=== PATIENT | female | born 1960 | race Caucasian/White ===

== ENCOUNTER 2024-01-06 09:19 | Day surgery (SDC) | payer OTHER ==
[~2024-01-06] VITALS: Ht 154.9 cm; Wt 60.0 kg
[~2024-01-06 09:19] MED LIST: Balanced Salt Epinephrine Irrigation Solution 500 mL IR SCH; Lidocaine HCl/Pf 1% 5 ML VIAL XX SCH; Moxifloxacin HCL 0.5 MG/0.1 ML 0.4MLSYR LEFTEYE SCH; NS 500 ML IV ONE; PHENYLEPHRINE\\TROPICAMIDE\\TETRACAINE OPHTHALMIC DILATING SOLN LEFTEYE PRN; Povidone-Iodine 450 DROP/30 ML Solution LEFTEYE SCH; Povidone-Iodine 450 DROP/30 ML Solution ONE; Tetracaine HCl/Pf 0.5% Opth Soln 4 ml ONE
[2024-01-06] MEDS ORDERED: NS 500 ML IV ONE (09:47)
[2024-01-06] MEDS ORDERED: ATOR20 (09:49)
[2024-01-06] MEDS ORDERED: OLME20 PO (09:49)
[2024-01-06] MEDS ORDERED: GABA600 (09:50)
[2024-01-06] MEDS ORDERED: IBUP800 PO (09:50)
--- NOTE | 2024-01-06 09:59 | NUR ---
01/06/24 0959 Ryan Whitfield CALL LIGHT WITHIN REACH. TETRACAINE IN LEFT EYE AT [phone] AND PLEDGETT IN AT 0954
[2024-01-06] MEDS ORDERED: Midazolam HCl 1MG / ML 2ML Vial ONE (10:38)
[2024-01-06 11:05] VITALS: BP 142/86
--- NOTE | 2024-01-06 11:33 | NUR ---
01/06/24 1133 CHRISSY MORRISON PT BROUGHT IN FOR DC INSTRUCTIONS PER PT REQUEST. BOTH VERY PLEASANT
== END 2024-01-06 11:30 | disposition home or self-care (01) ==
LOC: ORSCSDS 09:19
PROVIDERS: Student in an Organized Health Care Education/Training Program
PROC: 08RK3JZ Replacement of Left Lens with Synthetic Substitute, Percutaneous Approach (ICD-10-PCS; principal; 2024-01-06 10:30)
DX: H25.813 Combined forms of age-related cataract, bilateral (principal); H40.9 Unspecified glaucoma; H35.361 Drusen (degenerative) of macula, right eye; I10 Essential (primary) hypertension; H02.834 Dermatochalasis of left upper eyelid; H02.831 Dermatochalasis of right upper eyelid; F17.210 Nicotine dependence, cigarettes, uncomplicated; Z79.899 Other long term (current) drug therapy
CPT/HCPCS: J2250; J7040; V2632

== ENCOUNTER 2024-01-13 09:29 | Day surgery (SDC) | payer OTHER ==
[~2024-01-13] VITALS: Ht 154.9 cm; Wt 59.1 kg
[~2024-01-13 09:29] MED LIST changes: +ATOR20; +GABA600; +IBUP800 PO; +Lidocaine HCl/Pf 1% 5 ML VIAL ONE; -Moxifloxacin HCL 0.5 MG/0.1 ML 0.4MLSYR LEFTEYE SCH; +Moxifloxacin HCL 0.5 MG/0.1 ML 0.4MLSYR RIGHTEYE SCH; +OLME20 PO; -PHENYLEPHRINE\\TROPICAMIDE\\TETRACAINE OPHTHALMIC DILATING SOLN LEFTEYE PRN; +PHENYLEPHRINE\\TROPICAMIDE\\TETRACAINE OPHTHALMIC DILATING SOLN RIGHTEYE PRN; -Povidone-Iodine 450 DROP/30 ML Solution LEFTEYE SCH; +Povidone-Iodine 450 DROP/30 ML Solution RIGHTEYE SCH
[2024-01-13] MEDS ORDERED: FentaNYL Citrate 50 MCG/ML 2 ML Injection ONE (09:35)
[2024-01-13] MEDS ORDERED: Midazolam HCl 1MG / ML 2ML Vial ONE (09:36)
[2024-01-13] MEDS ORDERED: NS 500 ML IV ONE (09:41)
--- NOTE | 2024-01-13 09:41 | NUR ---
01/13/24 0941 Ryan Whitfield CALL LIGHT WITHIN REACH.
[2024-01-13 10:44] VITALS: BP 120/63
--- NOTE | 2024-01-13 11:05 | NUR ---
01/13/24 1107 CHRISSY MORRISON PT WALKED OUT HOLDING MY ARM WITHOUT ISSUE. DROVE HER
== END 2024-01-13 11:00 | disposition home or self-care (01) ==
LOC: ORSCSDS 09:29
PROVIDERS: Student in an Organized Health Care Education/Training Program
PROC: 08RJ3JZ Replacement of Right Lens with Synthetic Substitute, Percutaneous Approach (ICD-10-PCS; principal; 2024-01-13 10:30)
DX: H25.811 Combined forms of age-related cataract, right eye (principal); Z96.1 Presence of intraocular lens; I10 Essential (primary) hypertension; H40.033 Anatomical narrow angle, bilateral; H50.00 Unspecified esotropia; H35.361 Drusen (degenerative) of macula, right eye; F17.210 Nicotine dependence, cigarettes, uncomplicated; Z79.899 Other long term (current) drug therapy
CPT/HCPCS: J2001; J2250; J3010; J7040; V2632